=== PATIENT | male | born 1965 | race Caucasian/White ===

== ENCOUNTER 2017-02-03 18:04 | Emergency (ER) | payer SELFPAY ==
[~2017-02-03] VITALS: Ht 162.6 cm; Wt 95.0 kg
[2017-02-03] MEDS ORDERED: METO50TA5 PO (18:31)
[2017-02-03] MEDS ORDERED: OMEP20CA10 PO (18:32)
[2017-02-03] MEDS ORDERED: METF500T4 PO (18:32)
[2017-02-03 18:37] LABS: GLUCOSE,POINT OF CARE 112 MG/DL (70-110)
[2017-02-03] MEDS ORDERED: HYDROCODONE/ACETAMINOPHEN 5-325 MG TABLET PO ONE (19:00)
[2017-02-03 21:05] VITALS: BP 128/82
== END 2017-02-03 21:11 | disposition home or self-care (01) ==
LOC: EMS 18:08
DX: M72.2 Plantar fascial fibromatosis (principal); I10 Essential (primary) hypertension; E11.9 Type 2 diabetes mellitus without complications; F17.210 Nicotine dependence, cigarettes, uncomplicated; F10.20 Alcohol dependence, uncomplicated; Z79.899 Other long term (current) drug therapy
CPT/HCPCS: 82962; 99284